=== PATIENT | male | born 1985 ===

== ENCOUNTER 2020-05-03 12:02 | Emergency (ER) | payer SELFPAY ==
[2020-05-03 12:08] VITALS: BP 167/97
[2020-05-03] MEDS ORDERED: dexAMETHasone 4 MG/ML VIAL IM ONE (12:12)
--- NOTE | 2020-05-03 12:43 | Emergency Department Report ---
ED ENT HPI - General Chief complaint: Sore Throat Stated complaint: CHOKING/TONSIL PAIN Time Seen by Provider: 05/03/20 12:07 Source: patient Mode of arrival: Ambulatory Limitations: No Limitations - History of Present Illness Initial comments: Patient is a 35-year-old male who presents emergency room complaints of a sore throat that began this morning. He states that his throat feels very dry. He states he has pain with swallowing. He states he had one choking episode and saw a small amount of blood after the episode. He states since then he has been able to tolerate p.o. intake without difficulty and is currently drinking a bottle of water. He denies any fever nausea, vomiting, diarrhea, cough. He denies any sick contacts or recent travel. He has a past medical history of CKD giant cell tumor, previous nephrostomy tubes. Allergy to Bactrim. - Related Data Previous Rx's Medication Instructions Recorded Last Taken Type Amoxicillin [Amoxicillin TAB] 875 mg PO BID 10 Days #20 tablet 05/03/20 Unknown Rx Nystas/Diphen/Xyl Visc/Mylanta 30 ml MM Q4H PRN #300 ml 05/03/20 Unknown Rx [Magic Mouthwash] Allergies Allergy/AdvReac Type Severity Reaction Status Date / Time sulfamethoxazole Allergy Shortness Verified 05/03/20 12:05 [From Bactrim] of Breath trimethoprim [From Bactrim] Allergy Shortness Verified 05/03/20 12:05 of Breath ED Dental HPI - General Chief complaint: Sore Throat Stated complaint: CHOKING/TONSIL PAIN Time Seen by Provider: 05/03/20 12:07 Source: patient Mode of arrival: Ambulatory Limitations: No Limitations - Related Data Previous Rx's Medication Instructions Recorded Last Taken Type Amoxicillin [Amoxicillin TAB] 875 mg PO BID 10 Days #20 tablet 05/03/20 Unknown Rx Nystas/Diphen/Xyl Visc/Mylanta 30 ml MM Q4H PRN #300 ml 05/03/20 Unknown Rx [Magic Mouthwash] Allergies Allergy/AdvReac Type Severity Reaction Status Date / Time sulfamethoxazole Allergy Shortness Verified 05/03/20 12:05 [From Bactrim] of Breath trimethoprim [From Bactrim] Allergy Shortness Verified 05/03/20 12:05 of Breath ED Review of Systems ROS: Stated complaint: CHOKING/TONSIL PAIN Other details as noted in HPI Comment: All other systems reviewed and negative ED Past Medical Hx - Past Medical History Additional medical history: RENAL DISEASE - Surgical History Additional Surgical History: TUMOR IN KIDNEY NEPHROTOMY TUBES - Medications Home Medications: Home Medications Medication Instructions Recorded Confirmed Last Taken Type Amoxicillin [Amoxicillin TAB] 875 mg PO BID 10 Days #20 tablet 05/03/20 Unknown Rx Nystas/Diphen/Xyl Visc/Mylanta 30 ml MM Q4H PRN #300 ml 05/03/20 Unknown Rx [Magic Mouthwash] ED Physical Exam - General Limitations: No Limitations General appearance: alert, in no apparent distress - Head Head exam: Present: atraumatic, normocephalic - Eye Eye exam: Present: normal appearance - ENT ENT exam: Present: mucous membranes moist, other (mild edema and erythema of the uvula, no exudates, no tonsillar hypertrophy or exudates, uvula is midline, no deviation, no muffled voice, no trismus, no tongue elevation, no submandibular edema) - Respiratory Respiratory exam: Present: normal lung sounds bilaterally. Absent: respiratory distress, wheezes, rales, rhonchi, stridor, chest wall tenderness, accessory muscle use, decreased breath sounds, prolonged expiratory - Cardiovascular Cardiovascular Exam: Present: regular rate, normal rhythm, normal heart sounds. Absent: systolic murmur, diastolic murmur, rubs, gallop - Neurological Exam Neurological exam: Present: alert, oriented X3 - Psychiatric Psychiatric exam: Present: normal affect, normal mood - Skin Skin exam: Present: warm, dry, intact ED Course Vital Signs 05/03/20 12:07 Temperature 98.7 F Pulse Rate 86 Respiratory 20 Rate Blood Pressure 167/97 O2 Sat by Pulse 96 Oximetry ED Medical Decision Making - Medical Decision Making Patient is a 35-year-old male who presents emergency room complaints of a sore throat that began this morning. He states that his throat feels very dry. He states he has pain with swallowing. He states he had one choking episode and saw a small amount of blood after the episode. He states since then he has been able to tolerate p.o. intake without difficulty and is currently drinking a bottle of water. He denies any fever nausea, vomiting, diarrhea, cough. He denies any sick contacts or recent travel. He has a past medical history of CKD giant cell tumor, previous nephrostomy tubes. Allergy to Bactrim. vss. on exam: mild edema and erythema of the uvula, no exudates, no tonsillar hypertrophy or exudates, uvula is midline, no deviation, no muffled voice, no trismus, no tongue elevation, no submandibular edema, breath sounds are clear bilaterally, no wheezing, no rales, no rhonchi, no stridor. Examination appears consistent with uvulitis. No signs of tonsillitis, peritonsillar abscess, Ludwigs, siloadenitis. Patient given dexamethasone IM while in emergency department and was feeling much better when to go home, he had no further episodes, he was tolerating p.o. intake without difficulty. Patient given prescription for amoxicillin and Magic mouthwash. Patient will be referred to ENT and discussed the importance of follow-up. Advised patient Please take medication as prescribed. Please gargle with warm salt water 3-5 times a day. May use [id number] throat spray or throat lozenges. Follow-up with a primary care doctor. Please follow-up with a ENT doctor. Return to emergency room immediately for any new or worsening symptoms. Critical care attestation.: If time is entered above; I have spent that time in minutes in the direct care of this critically ill patient, excluding procedure time. ED Disposition Clinical Impression: Uvulitis Disposition: DC- TO HOME OR SELFCARE Is pt being admited?: No Does the pt Need Aspirin: No Condition: Stable Instructions: Uvulitis Additional Instructions: Please take medication as prescribed. Please gargle with warm salt water 3-5 times a day. May use [id number] throat spray or throat lozenges. Follow- up with a primary care doctor. Please follow-up with a ENT doctor. Return to emergency room immediately for any new or worsening symptoms. Prescriptions: Amoxicillin [Amoxicillin TAB] 875 mg PO BID 10 Days #20 tablet Nystas/Diphen/Xyl Visc/Mylanta [Magic Mouthwash] 30 ml MM Q4H PRN #300 ml PRN Reason: sore throat Referrals: JUANITA ROMERO MD [Staff Physician] - 3-5 Days ENT [facility] [Provider Group] [facility] - 3-5 Days Time of Disposition: 12:42 Print Language: DANISH
== END 2020-05-03 13:12 | disposition home or self-care (01) ==
LOC: ED 12:02
DX: K12.2 Cellulitis and abscess of mouth (principal); Z88.2 Allergy status to sulfonamides; Z88.8 Allergy status to other drugs, medicaments and biological substances; Z79.899 Other long term (current) drug therapy; Z98.890 Other specified postprocedural states
CPT/HCPCS: 96372; 99281; J1100